=== PATIENT | female | born 1995 | race Caucasian/White ===

== ENCOUNTER 2016-03-06 23:33 | Emergency (ER) | payer BC ==
[~2016-03-06] VITALS: Ht 162.6 cm; Wt 61.4 kg
[2016-03-06] MEDS ORDERED: REMICADE V100 MG/VIA IV (23:39)
[2016-03-07 00:09] VITALS: BP 134/78; PULSE 115; TEMP 100
== END 2016-03-07 00:12 | disposition home or self-care (01) ==
LOC: COL.ER 23:33
DX: J02.9 Acute pharyngitis, unspecified (principal); R50.9 Fever, unspecified

== ENCOUNTER → 2017-03-08 | Outpatient (CLI) | payer BC ==
[~2017-03-08] MED LIST: REMICADE V100 MG/VIA IV
== END ==
LOC: COL.LAB 03-07 17:33
DX: R19.7 Diarrhea, unspecified (principal)